=== PATIENT | male | born 2000 | race Caucasian/White ===

== ENCOUNTER 2021-05-31 15:49 | Inpatient (IN) | payer MEDICAID, SELFPAY ==
[2021-05-31 15:57] VITALS: BP 133/71; PULSE 71; RESP 18; TEMP 36.8; O2SAT 96; BMI 35.5
[2021-05-31 16:44] LABS: Basophils # 0.1 10^3/uL (0.0-0.1); Basophils % 1.1 %; Eosinophils # 0.2 10^3/uL (0.0-0.8); Eosinophils % 2.7 %; Hematocrit 46.8 % (42.0-52.0); Hemoglobin 15.7 g/dL (11.7-16.6); Lymphocytes # 2.4 10^3/uL (0.8-4.8); Lymphocytes % 36.7 %; Mean Corpuscular HGB Conc 33.5 g/dL (30.0-36.0); Mean Corpuscular Hemoglobin 28.4 pg (28.0-34.0); Mean Corpuscular Volume 84.8 fL (80-94); Monocytes # 0.6 10^3/uL (0.2-0.9); Neutrophils # 3.34 10^3/uL (1.8-7.7); Neutrophils % 50.3 %; Nucleated Red Blood Cells % 0 %; Platelet Count 235 10^3/cmm (130-400); Red Blood Count 5.52 10^6/uL (4.1-5.3); Red Cell Distribution Width 12.1 % (12.1-15.1); White Blood Count 6.6 10^3/uL (4.0-10.0)
--- NOTE | 2021-05-31 16:44 | W.ED.PSYCH ---
HPI - Psych General: Chief Complaint: Psychiatric Symptoms Stated Complaint: MHE, Depression Time Seen by Provider: 05/31/21 16:25 History of Present Illness: HPI Narrative: 21-year-old male presents emergency room with complaint of suicidal ideation depression for the last 3 weeks. He states he had thoughts of harming self by cutting his wrist but he does not plan to hurt himself and else at this point. He has previously been hospitalized for suicide attempts at other facilities. He is currently on an SSRI. No recent dose of medication changes or dose changes. He presents here with his there is no apparent conflict between the 2 of them while I was in the room. He denies any overt attempt to harm himself to this point just the MD complaint: suicidal ideation and feels depressed Onset (ago): week(s) (3) Duration: intermittent and getting worse History of same: Yes Relieving factors: none Exacerbating factors: none Associated psychiatric symptoms: suicidal ideation Associated symptoms: Deny auditory hallucinations, visual hallucinations, delusions, depression, homicidal ideation, suicidal ideation or racing thoughts Review of Systems Const: Denies: fever(s), chills, body aches, change in appetite, fatigue or malaise ENMT: Denies: throat pain, ear or mastoid pain, nasal discharge or nasal congestion Card: Denies: chest pain, edema, dyspnea on exertion or orthopnea Resp: Denies: dyspnea, productive cough or non-productive cough GI: Denies: abdominal pain, nausea, vomiting, hematemesis, coffee ground emesis, diarrhea, constipation, bloating, hematochezia or melena : Denies: flank pain, dysuria, urinary frequency or urinary urgency Skin/Breast: Denies: rash or pruritus Psych: Denies: depression, visual hallucinations, auditory hallucinations, suicidal ideation or homicidal ideation PFS ED PFSH: Medical History Anxiety Insomnia Severe depression Strain of knee and leg, left Family History Other CAD (coronary artery disease) Diabetes Social History Smoking and tobacco status: current every day smoker cigarettes Packs smoked per day: 1 Second hand smoke exposure: No Alcohol intake: current Alcohol intake frequency: holidays/special occasions only Desire information about alcohol rehabilitation?: No Desire information about substance/drug rehabilitation?: No Current occupational status: unemployed Physical Exam Const: COMMON NORMALS: no acute distress GENERAL APPEARANCE: cooperative and comfortable ORIENTATION/CONSCIOUSNESS: Yes awake, Yes oriented to person, Yes oriented to place and Yes oriented to time HENMT: COMMON NORMALS: normocephalic, atraumatic and hearing grossly normal bilaterally HEAD & SCALP: normocephalic and atraumatic Neck/C-Spine: COMMON NORMALS: no JVD Resp: COMMON NORMALS: normal respiratory effort, No retractions, No use of accessory muscles and clear to auscultation bilaterally AUSCULTATION: clear to auscultation bilaterally Cardio: COMMON NORMALS: no JVD, regular rate, regular rhythm and No murmurs present (Cardio) RATE: regular rate RHYTHM: regular rhythm GI: COMMON NORMALS: Soft to palpation and No hepatosplenomegaly present AUSCULTATION: Yes normoactive bowel sounds PALPATION: Yes Soft to palpation, No Tenderness to palpation present (GI), No Guarding due to palpation present (GI) and Yes No hepatosplenomegaly present Extremity: COMMON NORMALS: normal to inspection, capillary refill normal, no clubbing, cyanosis or edema, no calf tenderness and no pedal edema Neuro: SENSORIUM/ORIENTATION: Yes oriented to person, Yes oriented to place and Yes oriented to time Psych: THOUGHT CONTENT: No delusions Skin: COMMON NORMALS: no rashes or lesions noted GENERAL SKIN EXAM: no rashes or lesions noted Course Vital Signs: Vital signs: Vital Signs Temperature 98.1 F 06/02/21 12:34 Pulse Rate 55 L 06/02/21 12:34 Respiratory Rate 17 06/02/21 12:34 Blood Pressure 155/84 06/02/21 12:34 Pulse Oximetry 96 06/02/21 12:34 MDM - Psych MDM Narrative: Medical decision making narrative: Suicidal ideation discussed Dr. Grijalva he will accept patient admission orders written Lab Data: Labs: Lab Results 05/31/21 05/31/21 Range/Units 16:38 16:38 WBC 6.6 (4.0-10.0) 10^3/ uL RBC 5.52 H (4.1-5.3) 10^6/u L Hgb 15.7 (11.7-16.6) g/dL Hct 46.8 (42.0-52.0) % MCV 84.8 (80-94) fL MCH 28.4 (28.0-34.0) pg MCHC 33.5 (30.0-36.0) g/dL RDW 12.1 (12.1-15.1) % Plt Count 235 (130-400) 10^3/c mm MPV 11.0 H (7.4-10.4) fL Neut % (Auto) 50.3 % Lymph % (Auto) 36.7 % [place] % (Auto) 9.0 % Eos % (Auto) 2.7 % Baso % (Auto) 1.1 % Neut # (Auto) 3.34 (1.8-7.7) 10^3/u L Lymph # (Auto) 2.4 (0.8-4.8) 10^3/u L [place] # (Auto) 0.6 (0.2-0.9) 10^3/u L Eos # (Auto) 0.2 (0.0-0.8) 10^3/u L Baso # (Auto) 0.1 (0.0-0.1) 10^3/u L Nucleated RBC % (a uto) 0 % Nucleated RBCs # 0.0 /100WBC Sodium 139 (136-145) mmol/L Potassium 4.1 (3.5-5.1) mmol/L Chloride 103 (98-107) mmol/L Carbon Dioxide 26 (22-29) mmol/L Anion Gap 14.1 (5-19) BUN 9 (6-20) mg/dL Creatinine 0.7 (0.7-1.2) mg/dL GFR Calculation 141.0 H (90-130) mL/min Glucose 91 (65-115) mg/dL Calculated Osmolal ity 286 (285-295) mOsm/k g Calcium 9.0 (8.5-10.5) mg/dL Total Bilirubin 0.7 (0.15-1.2) mg/dL AST 58 H (0-40) U/L ALT 96 H (0-41) U/L Alkaline Phosphata se 55 (40-130) IU/L Total Protein 7.2 (6.6-8.7) g/dL Albumin 4.4 (3.5-5.2) g/dL Globulin 2.8 (1.3-4.6) g/dL Salicylates < 0.3 L (3-10) mg/dL Acetaminophen < 5.0 L (10-30) ug/mL Discharge Plan Discharge Admit Provider: Bijan Grijalva Condition: Stable Discharge Orders: Discharge Order (Routine); Ordered 06/02/21 Ordered By: Bijan Grijalva Discharge Diet: Regular Discharge Activity: Resume usual activity Coding Level of Care Code ED Entry Level Buyer for Chg Fwd Exam Comprehensive
[2021-05-31 17:18] LABS: Alanine Aminotransferase 96 U/L (0-41); Albumin Level 4.4 g/dL (3.5-5.2); Alkaline Phosphatase 55 IU/L (40-130); Anion Gap 14.1 (5-19); Aspartate Amino Transferase 58 U/L (0-40); Blood Urea Nitrogen 9 mg/dL (6-20); Carbon Dioxide 26 mmol/L (22-29); Chloride 103 mmol/L (98-107); Globulin 2.8 g/dL (1.3-4.6); Glucose 91 mg/dL (65-115); Osmolality Calculated 286 mOsm/kg (285-295); Potassium 4.1 mmol/L (3.5-5.1); Sodium 139 mmol/L (136-145); Total Bilirubin 0.7 mg/dL (0.15-1.2); Total Protein 7.2 g/dL (6.6-8.7)
[2021-05-31 17:29] LABS: Acetaminophen < 5.0 ug/mL (10-30); Salicylate < 0.3 mg/dL (3-10)
[2021-05-31 17:33] LABS: Add Urine Microscopic? YES; Bilirubin Urine Neg (Negative); Blood Urine Neg (Negative); Glucose Urine UA Norm (Normal); Ketones Urine Negative (Negative); Leukocyte Esterase Urine 2+ (Negative); Nitrate Urine Negative (Negative); Protein Urine Neg (Negative); Specific Gravity, Urine 1.015 (1.005-1.030); Urine Appearance SL Hazy (CLEAR); Urine Color Yellow (Yellow); Urobilinogen Urine Norm (Negative); pH Urine 5 (5-7)
[2021-05-31 17:34] LABS: Add Urine Culture? Yes; Bacteria Urine 1+ /hpf; WBC Urine 55-80 /hpf (0-5)
[2021-05-31 17:52] VITALS: BP 147/105; PULSE 59; RESP 17; TEMP 37.1; O2SAT 97
[2021-05-31 18:11] LABS: Amphetamines Screen Urine Negative (Negative); Barbiturates Screen Urine Negative (Negative); Benzodiazepines Screen Urine Negative (Negative); Cocaine Screen Urine Negative (Negative); Opiate Screen Urine Negative (Negative); PCP Screen Urine Negative (Negative); THC Screen Urine Negative (Negative)
[2021-05-31 18:51] LABS: Alcohol Level < 10 mg/dL (0-10)
[2021-05-31 21:00] VITALS: BP 119/67; PULSE 70; RESP 18; TEMP 36.9; O2SAT 96
[2021-06-01 14:00] VITALS: BP 112/63; PULSE 63; RESP 16; TEMP 36.3; O2SAT 97
--- NOTE | 2021-06-01 15:13 | PC.RESP ---
SMOKING CESSATION INFORMATION SENT TO PATIENT.
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
[2021-06-01 20:20] VITALS: BP 110/71; PULSE 71; RESP 18; TEMP 36.9; O2SAT 96
[2021-06-01] MEDS: sertraline 50 mg Tablet PO (20:59)
[2021-06-02 06:00] VITALS: BP 155/84; PULSE 55; RESP 17; TEMP 36.7; O2SAT 96
[2021-06-02] MEDS: sertraline 50 mg Tablet PO (07:54)
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
[2021-06-02 12:34] VITALS: BP 155/84; PULSE 55; RESP 17; TEMP 36.7; O2SAT 96
== END 2021-06-02 13:10 | disposition home or self-care (01) | DRG 885 ==
LOC: ER 16:25 → NP 17:36
PROVIDERS: Admitting Provider Psychiatry & Neurology Psychiatry; Emergency Provider Family Medicine; PCP Family Medicine; Visit Provider Psychiatry & Neurology Psychiatry
DX: F33.2 Major depressive disorder, recurrent severe without psychotic features (principal); R45.851 Suicidal ideations; F43.12 Post-traumatic stress disorder, chronic; F41.9 Anxiety disorder, unspecified; G47.00 Insomnia, unspecified; F17.210 Nicotine dependence, cigarettes, uncomplicated; Z91.5 Personal history of self-harm; Z62.811 Personal history of psychological abuse in childhood; Z81.3 Family history of other psychoactive substance abuse and dependence; Z63.8 Other specified problems related to primary support group; Z62.820 Parent-biological child conflict
CPT/HCPCS: 80053; 80306; 80307; 81001; 85025; 87086; 99285

== ENCOUNTER → 2021-06-11 10:15 | Outpatient (BNVA) | payer MEDICAID, SELFPAY | PROVIDERS: PCP Family Medicine; Visit Provider Family Medicine | DX: R82.71 Bacteriuria (principal); R82.81 Pyuria; R79.89 Other specified abnormal findings of blood chemistry; F17.200 Nicotine dependence, unspecified, uncomplicated; F17.213 Nicotine dependence, cigarettes, with withdrawal; F43.10 Post-traumatic stress disorder, unspecified; F41.9 Anxiety disorder, unspecified; F32.9 Major depressive disorder, single episode, unspecified | CPT/HCPCS: 80053; 81000; 87086 ==

== ENCOUNTER → 2021-09-21 09:35 | Outpatient (BNVA) | payer OTHER, SELFPAY | PROVIDERS: Visit Provider Psychiatry & Neurology Psychiatry | DX: F41.1 Generalized anxiety disorder (principal); F33.2 Major depressive disorder, recurrent severe without psychotic features; F17.218 Nicotine dependence, cigarettes, with other nicotine-induced disorders | CPT/HCPCS: 99214 ==

== ENCOUNTER → 2021-11-14 08:11 | Outpatient (BNVA) | payer OTHER, SELFPAY | PROVIDERS: Visit Provider Psychiatry & Neurology Psychiatry | DX: F41.1 Generalized anxiety disorder (principal); F33.2 Major depressive disorder, recurrent severe without psychotic features; F17.218 Nicotine dependence, cigarettes, with other nicotine-induced disorders | CPT/HCPCS: 99214 ==

== ENCOUNTER → 2021-11-19 13:42 | Outpatient (BNVA) | payer OTHER, SELFPAY | PROVIDERS: Visit Provider Counselor Mental Health | DX: F41.1 Generalized anxiety disorder (principal); F33.2 Major depressive disorder, recurrent severe without psychotic features; F43.10 Post-traumatic stress disorder, unspecified; F41.9 Anxiety disorder, unspecified; F32.9 Major depressive disorder, single episode, unspecified | CPT/HCPCS: 90837; 90834 ==

== ENCOUNTER → 2021-11-28 11:46 | Outpatient (BNVA) | payer OTHER, SELFPAY | PROVIDERS: PCP Family Medicine; Visit Provider Counselor Mental Health | DX: F41.1 Generalized anxiety disorder (principal); F33.2 Major depressive disorder, recurrent severe without psychotic features; F43.10 Post-traumatic stress disorder, unspecified; F41.9 Anxiety disorder, unspecified; F32.9 Major depressive disorder, single episode, unspecified | CPT/HCPCS: 90837; 90834 ==

== ENCOUNTER → 2021-12-10 12:57 | Outpatient (BNVA) | payer OTHER, SELFPAY | PROVIDERS: PCP Family Medicine; Visit Provider Counselor Mental Health | DX: F41.1 Generalized anxiety disorder (principal); F33.2 Major depressive disorder, recurrent severe without psychotic features | CPT/HCPCS: 90834 ==

== ENCOUNTER → 2021-12-24 12:57 | Outpatient (BNVA) | payer OTHER, SELFPAY | PROVIDERS: PCP Family Medicine; Visit Provider Counselor Mental Health | DX: F41.1 Generalized anxiety disorder (principal); F33.2 Major depressive disorder, recurrent severe without psychotic features; F41.9 Anxiety disorder, unspecified; F32.9 Major depressive disorder, single episode, unspecified | CPT/HCPCS: 90834 ==

== ENCOUNTER → 2021-12-26 14:07 | Outpatient (BNVA) | payer MEDICAID, SELFPAY | PROVIDERS: PCP Family Medicine; Referring Provider Family Medicine; Visit Provider Orthopaedic Surgery | DX: M25.562 Pain in left knee (principal) | CPT/HCPCS: 73560; 73565 ==

== ENCOUNTER → 2022-01-04 09:53 | Outpatient (BNVA) | payer OTHER, MEDICAID, SELFPAY | PROVIDERS: PCP Family Medicine; Visit Provider Counselor Mental Health | DX: F41.1 Generalized anxiety disorder (principal); F33.2 Major depressive disorder, recurrent severe without psychotic features; F43.10 Post-traumatic stress disorder, unspecified | CPT/HCPCS: 90837; 90834 ==

== ENCOUNTER → 2022-01-14 11:55 | Outpatient (BNVA) | payer MEDICAID, SELFPAY | PROVIDERS: PCP Family Medicine; Visit Provider Counselor Mental Health | DX: F41.9 Anxiety disorder, unspecified (principal); F32.9 Major depressive disorder, single episode, unspecified; F43.10 Post-traumatic stress disorder, unspecified; F33.2 Major depressive disorder, recurrent severe without psychotic features; F41.1 Generalized anxiety disorder | CPT/HCPCS: 90834 ==

== ENCOUNTER → 2022-01-21 12:00 | Outpatient (BNVA) | payer OTHER, SELFPAY | PROVIDERS: PCP Family Medicine; Visit Provider Counselor Mental Health | DX: F41.1 Generalized anxiety disorder (principal); F33.2 Major depressive disorder, recurrent severe without psychotic features | CPT/HCPCS: 90834 ==

== ENCOUNTER → 2022-02-01 11:47 | Outpatient (BNVA) | payer OTHER, SELFPAY | PROVIDERS: PCP Family Medicine; Visit Provider Counselor Mental Health | DX: F41.1 Generalized anxiety disorder (principal); F33.2 Major depressive disorder, recurrent severe without psychotic features; F43.10 Post-traumatic stress disorder, unspecified; F41.9 Anxiety disorder, unspecified; F32.9 Major depressive disorder, single episode, unspecified | CPT/HCPCS: 90834 ==

== ENCOUNTER → 2022-02-04 10:15 | Outpatient (BNVA) | payer OTHER, SELFPAY | PROVIDERS: PCP Family Medicine; Visit Provider Psychiatry & Neurology Psychiatry | DX: F43.10 Post-traumatic stress disorder, unspecified (principal); F41.1 Generalized anxiety disorder; F33.2 Major depressive disorder, recurrent severe without psychotic features; F17.218 Nicotine dependence, cigarettes, with other nicotine-induced disorders | CPT/HCPCS: 99214 ==

== ENCOUNTER 2022-02-08 08:19 | Outpatient (CLI) | payer MEDICAID, SELFPAY ==
--- NOTE | 2022-02-08 08:26 | MR_ITS ---
WS: [id number] MRI LEFT KNEE HISTORY: M25.569 - Pain in unspecified knee COMPARISON: 08/16/2016 MRI. Prior knee radiograph 12/26/2021 Anterior cruciate ligament: Intact. Posterior cruciate ligament: Intact. Medial collateral ligament: Intact. Posterior lateral corner structures: Intact. Medial menisci: Intact. Normal signal, size and shape. Lateral meniscus: Intact. Normal signal, size and shape. Extensor mechanism: Distal quadriceps tendon and patellar tendons are intact. Fluid and soft tissue: No joint effusion. No Keenan's cyst. Osseous and articular structures: Patellofemoral compartment: Normal. Medial compartment: Normal. Normal joint space and normal cartilage. Lateral compartment: Normal joint space and cartilage. MR/MR knee LT wo con* [id number] IMPRESSION: Unremarkable MRI LEFT knee. No meniscal tear or marrow edema. No fractures.
== END 2022-02-08 08:20 | disposition home or self-care (01) ==
LOC: RAD 08:20
PROVIDERS: PCP Family Medicine; Visit Provider Orthopaedic Surgery
DX: M25.562 Pain in left knee (principal); F41.1 Generalized anxiety disorder; F43.12 Post-traumatic stress disorder, chronic
CPT/HCPCS: 90834; 73721

== ENCOUNTER 2022-08-23 18:18 | Emergency (ER) | payer MEDICAID, SELFPAY ==
[2022-08-23 18:29] VITALS: BP 155/77; PULSE 81; RESP 15; TEMP 36.7; O2SAT 96; BMI 35.2
--- NOTE | 2022-08-23 18:37 | XRR_ITS ---
PROCEDURE INFORMATION: Exam: XR Left Ribs with PA Chest Exam date and time: 08/23/2022 6:40 PM Age: 22 years old Clinical indication: Painful respiration; Additional info: Left rib pain TECHNIQUE: Imaging protocol: Radiologic exam of the Left ribs with PA chest. Views: 3 views COMPARISON: CR XR chest 1V [id number] 09/02/2016 2:44 PM FINDINGS: Lungs: There is no pulmonary vascular congestion. There is no evidence of focal alveolar consolidation. Pleural spaces: There are no pleural effusions. There is no evidence of pneumothorax. Heart/Mediastinum: The cardiac silhouette is within normal limits. Bones/joints: No displaced rib fracture is seen. No acute lucent fracture lines are visualized. XR/XR ribs LT mn 3V w [id number] IMPRESSION: 1. No acute rib fracture is seen radiographically. 2. No acute cardiopulmonary disease identified.
--- NOTE | 2022-08-23 18:37 | W.ED.GENADLT ---
HPI - General Adult General: Chief complaint: General Medical Stated complaint: left upper side pain Time Seen by Provider: 08/23/22 18:37 History of Present Illness: Patient is a 22-year-old male comes to the ED with left rib pain. Patient states that he injured it approximately 5 days ago. 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 He twisted to put TV on shelf and felt sharp pain in the left rib. Patient says he has a history of fractured left rib from several years ago. He now has pain in his left lower ribs when he takes a deep breath in and they are tender to the touch. He rates his pain currently a 5 out of 10. Associated symptoms: Deny chest pain, dyspnea, headache(s), nausea, rash, palpitations or vomiting Review of Systems Const: Denies: fever(s), chills or fatigue Eyes: Denies: change in vision or eye discomfort ENMT: Denies: throat pain, odynophagia, nasal discharge or nasal congestion Card: Denies: chest pain, palpitations, edema, swelling of feet/ankles, dyspnea on exertion or orthopnea Resp: Denies: dyspnea, productive cough or non-productive cough GI: Denies: abdominal pain, nausea, vomiting, diarrhea, constipation or hematochezia : Denies: flank pain, difficulty urinating, dysuria or hematuria Musc: Reports: other (Left rib pain); Denies: neck pain, back pain or extremity swelling Skin/Breast: Denies: rash or new lesions Neuro: Denies: headache(s), numbness in extremities or weakness in extremities PFS ED PFSH: Medical History Anxiety Insomnia Psychiatric care Severe depression Strain of knee and leg, left Family History Other CAD (coronary artery disease) Diabetes Hypertension Social History Smoking and tobacco status: current every day smoker cigarettes Packs smoked per day: 0.5 Years cigarettes smoked: 4 Quit status (tobacco): considering quitting Second hand smoke exposure: Yes Smoking risk assessment/counseling performed?: No Alcohol intake: current Alcohol intake frequency: holidays/special occasions only Alcohol type: beer and hard liquor Desire information about alcohol rehabilitation?: No Counseling given: No Desire information about substance/drug rehabilitation?: No Counseling given: No Current occupational status: unemployed Physical Exam Const: COMMON NORMALS: no acute distress, patient oriented x3, healthy appearing and alert GENERAL APPEARANCE: cooperative and comfortable HENMT: COMMON NORMALS: normocephalic HEAD & SCALP: normocephalic MOUTH: Normal oral and palatal mucosa present THROAT: posterior oropharynx normal and uvula midline Neck/C-Spine: COMMON NORMALS: supple GENERAL: Yes normal visual inspection Chest: CHEST: Yes tenderness rib left mid-axillary line involving the 9th rib and involving the 10th rib Resp: COMMON NORMALS: normal respiratory effort, No retractions, No use of accessory muscles and clear to auscultation bilaterally AUSCULTATION: clear to auscultation bilaterally Cardio: COMMON NORMALS: regular rate, regular rhythm, S1 normal heart sound present, S2 normal heart sound present, No gallops present (Cardio), No clicks present (Cardio), No murmurs present (Cardio) and Peripheral pulses 2+ throughout RATE: regular rate RHYTHM: regular rhythm HEART SOUNDS: S1 normal heart sound present and S2 normal heart sound present PERIPHERAL PULSES: Peripheral pulses 2+ throughout GI: COMMON NORMALS: Normal to inspection, nondistended, normoactive bowel sounds present, Soft to palpation, non-tender and no masses PALPATION: Yes Soft to palpation : COMMON NORMALS: Yes no CVA tenderness BLADDER/KIDNEY EXAM: Yes no CVA tenderness Back/Pelvis: COMMON NORMALS: no CVA tenderness Extremity: COMMON NORMALS: normal to inspection Neuro: COMMON NORMALS: patient oriented x3 SENSORIUM/ORIENTATION: Yes alert GAIT: Yes Normal gait present Skin: GENERAL SKIN EXAM: dry skin Course Vital Signs: Vital signs: Vital Signs Temperature 98.1 F 08/23/22 18:29 Pulse Rate 81 08/23/22 18:29 Respiratory Rate 15 08/23/22 18:29 Blood Pressure 155/77 08/23/22 18:29 Pulse Oximetry 96 08/23/22 18:29 Oxygen Delivery Me thod 08/23/22 18:29 [facility] - General Adult Medical Decision Making Patient is a 22-year-old male comes to the ED with left rib pain. Patient states that he injured it approximately 5 days ago. 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 He twisted to put TV on shelf and felt sharp pain in the left rib. Vitals are stable. Patient appears nontoxic in no acute distress or pain. He has some palpable mid left axillary tenderness along the ninth and 10th rib. The rest of his exam is benign. Rib/chest x-ray showed no acute fractures or findings. He was given a dose of Toradol here in the ED and was stable for discharge home. Diagnosed with left rib pain likely from muscle strain. He was sent home with a prescription for Celebrex and a muscle relaxer. Told to follow-up with PCP within the next week for reevaluation. Patient understood and agreed with plan. Lab Data Radiology Impressions Ribs X-Ray 08/23/22 18:37 IMPRESSION: 1. No acute rib fracture is seen radiographically. 2. No acute cardiopulmonary disease identified. Discharge Plan Discharge Patient Disposition: Home Clinical Impression: Rib pain on left side Condition: Stable Prescriptions: New ibuprofen 600 mg tablet 600 mg PO Q8H PRN (Reason: pain) Qty: 30 0RF cyclobenzaprine 10 mg tablet 10 mg PO BID PRN (Reason: muscle spasm and pain) Qty: 15 0RF No Action acetaminophen [Tylenol] 325 mg capsule 975 mg PO QID PRN (Reason: fever or pain) trazodone 50 mg tablet 100 mg PO .HS PRN (Reason: insomnia) Qty: 180 0RF sertraline 100 mg tablet 150 mg PO DAILY 90 Days Qty: 135 0RF prazosin 5 mg capsule 5 mg PO .HS Qty: 90 0RF hydroxyzine HCl 50 mg tablet 50 mg PO QID PRN (Reason: anxiety) Qty: 120 2RF ibuprofen 200 mg Tablet 200 - 400 mg PO Q6H PRN (Reason: HEADACHE/PAIN/FEVER) Discharge Orders: Discharge ED (Routine); Ordered 08/23/22 Ordered By: Everton Rucker Referrals: Godwin Chacon MD [Primary Care Provider] - Discharge Diet: Regular Discharge Activity: Increase activity as tolerated Activity Restrictions/Additional Instructions: Follow-up with medical provider as directed in the next 7 to 10 days. Take medications as prescribed. Apply cold pack on sore area for 15 minutes at a time multiple times throughout the day to help with symptoms. Return to the ER or your medical provider if condition worsens. Please read and understand discharge instructions. Thank you for choosing [facility] for your healthcare needs today. Please realize this is an emergency room and that we are providing you with a medical screening exam and this may not be complete and all inclusive of all the testing and or work up that you may need to determine your ailment or severity of your illness. It is very important that you follow up as instructed or that you return to the Emergency Department should you have concerns or if your condition changes or worsens in any way. Coding Level of Care Code ED Jai Alai Player for Maria R Garcia Exam Comprehensive
[2022-08-23] MEDS: ketorolac 60 mg/2 mL INJ IM (18:56)
== END 2022-08-23 19:16 | disposition home or self-care (01) ==
PROVIDERS: Emergency Provider Physician Assistant; PCP Family Medicine
DX: R07.81 Pleurodynia (principal); F17.210 Nicotine dependence, cigarettes, uncomplicated
CPT/HCPCS: 71101; 96372; 99284; J1885

== ENCOUNTER 2022-08-27 16:03 | Emergency (ER) | payer MEDICAID, SELFPAY ==
[2022-08-27 16:10] VITALS: BP 137/74; PULSE 70; RESP 18; TEMP 36.7; O2SAT 96; BMI 35.2
--- NOTE | 2022-08-27 17:29 | ED_ITS ---
HPI - Extremity Problem General: Chief complaint: Extremity Injury, Upper Stated complaint: dizzy, abd pain Time Seen by Provider: 08/27/22 17:26 History of Present Illness: 22-year-old male patient comes in today with left anterior chest wall pain. Patient denies any radiating chest discomfort. Patient denies any shortness of breath. Patient reports pain is exacerbated with movement. Patient was seen 4 days ago for the same complaint and was evaluated at that time for concerns of possible rib fracture. No sign of fracture was noted on the x-rays. On exam patient has tenderness in the left anterior ribs. No crepitus or flailing of the chest is noted. Associated symptoms: Reports chest pain (Left anterior chest wall tenderness); Deny fever(s) or rash Review of Systems Const: Denies: fever(s) Card: Reports: chest pain (Left anterior chest wall tenderness) Resp: Denies: dyspnea Musc: Denies: neck pain Skin/Breast: Denies: rash PFSH ED PFSH: Medical History Anxiety Insomnia Psychiatric care Severe depression Strain of knee and leg, left Family History Other CAD (coronary artery disease) Diabetes Hypertension Social History Smoking and tobacco status: current every day smoker cigarettes Packs smoked per day: 0.5 Years cigarettes smoked: 4 Quit status (tobacco): considering quitting Second hand smoke exposure: Yes Smoking risk assessment/counseling performed?: No Alcohol intake: current Alcohol intake frequency: holidays/special occasions only Alcohol type: beer and hard liquor Desire information about alcohol rehabilitation?: No Counseling given: No Desire information about substance/drug rehabilitation?: No Counseling given: No Current occupational status: unemployed Physical Exam Const: COMMON NORMALS: alert HENMT: COMMON NORMALS: normocephalic HEAD & SCALP: normocephalic Neck/C-Spine: COMMON NORMALS: full ROM Chest: CHEST: Yes tenderness (Palpable tenderness to left anterior ribs, no crepitus or flailing) Resp: COMMON NORMALS: normal respiratory effort and clear to auscultation bilaterally AUSCULTATION: clear to auscultation bilaterally Cardio: COMMON NORMALS: regular rate and regular rhythm RATE: regular rate RHYTHM: regular rhythm GI: COMMON NORMALS: Soft to palpation and non-tender PALPATION: Yes Soft to palpation : COMMON NORMALS: Yes no CVA tenderness BLADDER/KIDNEY EXAM: Yes no CVA tenderness Back/Pelvis: COMMON NORMALS: no CVA tenderness Extremity: COMMON NORMALS: normal to inspection Neuro: SENSORIUM/ORIENTATION: Yes alert Skin: COMMON NORMALS: turgor normal GENERAL SKIN EXAM: turgor normal Course Vital Signs: Vital signs: Vital Signs Temperature 98.1 F 08/27/22 16:10 Pulse Rate 70 08/27/22 16:10 Respiratory Rate 18 08/27/22 16:10 Blood Pressure 137/74 08/27/22 16:10 Pulse Oximetry 96 08/27/22 16:10 Oxygen Delivery Me thod 08/27/22 16:10 MDM - Extremity (Nontraumatic) Medical Decision Making 22-year-old male patient comes in today for complaints of left anterior chest wall pain on exam patient appears in mild to moderate pain. Respirations are even lungs are clear to auscultation. Patient has palpable chest tenderness to the left anterior chest wall. No crepitus or flailing of the chest is noted. Differential diagnosis includes but not limited to pneumonia, rib fracture, costochondritis, contusion. No sign of contusion was noted. X-rays noted no fracture or pneumonia. Believe the patient probably has costochondritis. Patient was given 10 mg of dexamethasone IM, and 30 mg of Toradol IM. Patient was also given 1 hydrocodone tablet in the ER. Patient refused a prescription for hydrocodone due to family history of substance abuse disorder. Recommended holding the ibuprofen and cyclobenzaprine using diclofenac and acetaminophen. Patient stated understanding and agreed to plan. Discharge Plan Discharge Patient Disposition: Home Clinical Impression: Costochondritis Condition: Stable Prescriptions: New diclofenac sodium 75 mg tablet,delayed release (DR/EC) 75 mg PO BID Qty: 20 0RF hydrocodone-acetaminophen 5-325 mg tablet 1 tab PO Q8H PRN (Reason: pain (scale score 7-10)) Qty: 7 0RF Held ibuprofen 200 mg Tablet 200 - 400 mg PO Q6H PRN (Reason: HEADACHE/PAIN/FEVER) Hold Instructions: Resume on 09/06/22. ibuprofen 600 mg tablet 600 mg PO Q8H PRN (Reason: pain) Qty: 30 0RF Hold Instructions: Resume on 09/06/22. Discontinued cyclobenzaprine 10 mg tablet 10 mg PO BID PRN (Reason: muscle spasm and pain) Qty: 15 0RF No Action acetaminophen [Tylenol] 325 mg capsule 975 mg PO QID PRN (Reason: fever or pain) trazodone 50 mg tablet 100 mg PO .HS PRN (Reason: insomnia) Qty: 180 0RF sertraline 100 mg tablet 150 mg PO DAILY 90 Days Qty: 135 0RF prazosin 5 mg capsule 5 mg PO .HS Qty: 90 0RF hydroxyzine HCl 50 mg tablet 50 mg PO QID PRN (Reason: anxiety) Qty: 120 2RF Discharge Orders: Discharge ED (Routine); Ordered 08/27/22 Ordered By: Mor Alexis Referrals: Godwin Chacon MD [Primary Care Provider] - Discharge Diet: Usual diet Discharge Activity: Increase activity as tolerated Patient Instructions: Costochondritis (ED), Opioid Safety Activity Restrictions/Additional Instructions: Activity as tolerated. Gentle stretching and range of motion exercises. Stop cyclobenzaprine. Take diclofenac 75 mg 1 tablet 2 times a day for the next 10 days. Do not use naproxen or ibuprofen while taking diclofenac. Use acetaminophen to help control pain. Use hydrocodone for severe pain. Do not use hydrocodone while driving or operating equipment they may harm yourself or others. Most often this inflammatory process will take 2 to 3 weeks to recover completely. Follow-up with primary care in 3 days for recheck. Return to ER for fever greater than 100.4, increased shortness of breath, or new concerns. 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
--- NOTE | 2022-08-27 17:30 | XRR_ITS ---
PROCEDURE INFORMATION: Exam: XR Chest Exam date and time: 08/27/2022 5:37 PM Age: 22 years old Clinical indication: Chest wall pain; Additional info: Left chest wall pain TECHNIQUE: Imaging protocol: Radiologic exam of the chest. Views: 2 views. COMPARISON: CR (CHEST, ) 08/23/2022 6:40 PM FINDINGS: Lungs: Unremarkable. No consolidation. Pleural spaces: Unremarkable. No pleural effusion. No pneumothorax. Heart/Mediastinum: Unremarkable. No cardiomegaly. Bones/joints: Unremarkable. XR/XR chest 2V* [id number] IMPRESSION: No acute findings.
[2022-08-27] MEDS: dexamethasone 10 mg/mL INJ IM (18:09)
[2022-08-27] MEDS: HYDROcodone-acetaminophen 5-325 mg Tablet 1 TAB PO (18:10)
[2022-08-27] MEDS: ketorolac 30 mg/mL INJ IM (18:10)
== END 2022-08-27 18:11 | disposition home or self-care (01) ==
PROVIDERS: Emergency Provider Nurse Practitioner Family; PCP Family Medicine
DX: M94.0 Chondrocostal junction syndrome [Tietze] (principal); F17.210 Nicotine dependence, cigarettes, uncomplicated
CPT/HCPCS: 71046; 96372; 99284; J1100; J1885

== ENCOUNTER 2022-11-14 13:52 | Outpatient (CLI) | payer MEDICAID, SELFPAY ==
[2022-11-14 14:59] LABS: Sperm Progressive Motility 70 % (31-34); Volume Semen 2.5 mL (2-5)
[2022-11-14 15:00] LABS: Sperm Immotility 25 % (50-60); Sperm Non-Progressive Motility 5 % (5-10)
[2022-11-14 15:54] LABS: Side 1 75; Side 2 66
[2022-11-14 15:56] LABS: Viscosity Semen High Viscosity
[2022-11-14 15:57] LABS: Epithelial Count Semen 0-4 /hpf; Pathology Referral Yes
== END 2022-11-14 13:53 | disposition home or self-care (01) ==
LOC: LAB 13:58
PROVIDERS: PCP Family Medicine; Visit Provider Nurse Practitioner Women's Health
DX: Z31.69 Encounter for other general counseling and advice on procreation (principal)
CPT/HCPCS: 80503; 89320

== ENCOUNTER 2023-04-20 18:34 | Emergency (ER) | payer MEDICAID, SELFPAY ==
--- NOTE | 2023-04-20 18:38 | XRR_ITS ---
PROCEDURE INFORMATION: Exam: XR Chest Exam date and time: 04/20/2023 6:55 PM Age: 23 years old Clinical indication: Pain; Chest pressure; Additional info: Cp TECHNIQUE: Imaging protocol: Radiologic exam of the chest. Views: 1 view. COMPARISON: CR (CHEST, ) 08/27/2022 5:37 PM FINDINGS: Lungs: Unremarkable. No consolidation. Pleural spaces: Unremarkable. No pleural effusion. No pneumothorax. Heart/Mediastinum: Unremarkable. No cardiomegaly. Bones/joints: Unremarkable. XR/XR chest 1V portable [id number] IMPRESSION: No acute findings.
[2023-04-20 18:49] VITALS: BP 124/69; PULSE 74; RESP 16; TEMP 36.7; O2SAT 96; BMI 36.6
[2023-04-20 19:22] LABS: Basophils # 0.1 10^3/uL (0.0-0.1); Basophils % 0.9 %; Eosinophils # 0.2 10^3/uL (0.0-0.8); Hematocrit 44.2 % (42.0-52.0); Hemoglobin 15.1 g/dL (11.7-16.6); Lymphocytes # 3.1 10^3/uL (0.8-4.8); Lymphocytes % 37.9 %; Mean Corpuscular HGB Conc 34.2 g/dL (30.0-36.0); Mean Corpuscular Hemoglobin 28.5 pg (28.0-34.0); Mean Corpuscular Volume 83.6 fl (80-94); Mean Platelet Volume 10.3 fL (7.4-10.4); Monocytes # 0.5 10^3/uL (0.2-0.9); Monocytes % 6.7 %; Neutrophils % 52.1 %; Nucleated Red Blood Cells % 0 %; Platelet Count 220 10^3/cmm (130-400); Red Blood Count 5.29 10^6/uL (4.1-5.3); Red Cell Distribution Width 12.5 % (12.1-15.1); White Blood Count 8.1 10^3/uL (4.0-10.0)
[2023-04-20 19:36] LABS: Alanine Aminotransferase 96 U/L (0-41); Albumin Level 4.6 g/dL (3.5-5.2); Alkaline Phosphatase 40 U/L (40-130); Anion Gap 13.2 (5-19); Aspartate Amino Transferase 58 U/L (0-40); Blood Urea Nitrogen 15 mg/dL (6-20); Calcium 8.9 mg/dL (8.5-10.5); Carbon Dioxide 26 mmol/L (22-29); Chloride 104 mmol/L (98-107); Globulin 2.5 g/dL (1.3-4.6); Glomerular Filtration Rate 103.7 mL/min (90-130); Glucose 86 mg/dL (65-115); Lipase 18 U/L (13-60); Osmolality Calculated 288 mOsm/kg (285-295); Potassium 4.2 mmol/L (3.5-5.1); Sodium 139 mmol/L (136-145); Total Bilirubin 0.5 mg/dL (0.15-1.2); Total Protein 7.1 g/dL (6.6-8.7)
--- NOTE | 2023-04-20 20:00 | ECG_ITS ---
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 Measurements Intervals [place] Rate: 55 P: 50 ME: 193 QRS: 44 QRSD: 113 T: 52 QT: 420 QTc: 404 Interpretive Statements SINUS BRADYCARDIA WITH SINUS ARRHYTHMIA MODERATE INTRAVENTRICULAR CONDUCTION DELAY [110+ ms QRS DURATION] Compared to ECG 09/02/2016 14:26:45 Intraventricular conduction delay now present Sinus rhythm no longer present Electronically Signed On 04-21-2023 11:08:30 CDT by Love Kim M.D. [email or web address]
--- NOTE | 2023-04-20 20:00 | W.ED.CHESTPA ---
HPI - Chest Pain General: Chief Complaint: Chest Pain Stated Complaint: Chest pain, vomiting Time Seen by Provider: 04/20/23 19:32 Source: patient Mode of arrival: ambulatory Limitations: no limitations History of Present Illness: 23-year-old male states that he has had chest pain over the last 3 to 4 days states he also has had some nausea and vomiting. States pain is a sharp pain in the center of his chest. He denies any shortness of breath denies any fevers she denies any worsening improving factors. Associated symptoms: Reports nausea and vomiting; Deny abdominal pain, dyspnea or fever(s) Review of Systems Const: Denies: fever(s) or chills Eyes: Denies: eye discomfort ENMT: Denies: throat pain or dental pain Card: Reports: chest pain Resp: Denies: dyspnea GI: Reports: nausea and vomiting; Denies: abdominal pain or diarrhea Musc: Denies: neck pain or back pain Skin/Breast: Denies: rash Neuro: Denies: headache(s) PFSH ED PFSH: Medical History Anxiety Insomnia Psychiatric care Severe depression Strain of knee and leg, left Family History Other CAD (coronary artery disease) Diabetes Hypertension Social History Smoking and tobacco status: current every day smoker cigarettes Packs smoked per day: 0.5 Years cigarettes smoked: 4 Quit status (tobacco): considering quitting Second hand smoke exposure: Yes Smoking risk assessment/counseling performed?: No Alcohol intake: current Alcohol intake frequency: holidays/special occasions only Alcohol type: beer and hard liquor Desire information about alcohol rehabilitation?: No Counseling given: No Substance/Drug Use: former Date of last use: Marijuana - 2019 Desire information about substance/drug rehabilitation?: No Counseling given: No Current occupational status: unemployed Physical Exam Const: COMMON NORMALS: no acute distress, patient oriented x3 and healthy appearing HENMT: COMMON NORMALS: normocephalic and atraumatic HEAD & SCALP: normocephalic and atraumatic Eye: COMMON NORMALS: conjunctivae normal CONJUNCTIVA: Yes conjunctivae normal Neck/C-Spine: COMMON NORMALS: full ROM and supple Chest: COMMONS NORMALS: normal inspection of the chest and normal palpation of entire chest wall Resp: COMMON NORMALS: normal respiratory effort, No retractions, No use of accessory muscles and clear to auscultation bilaterally AUSCULTATION: clear to auscultation bilaterally Cardio: COMMON NORMALS: regular rate, regular rhythm and No murmurs present (Cardio) RATE: regular rate RHYTHM: regular rhythm GI: COMMON NORMALS: Normal to inspection, nondistended, normoactive bowel sounds present, Soft to palpation, non-tender and no masses PALPATION: Yes Soft to palpation Extremity: COMMON NORMALS: normal to inspection and full ROM Neuro: COMMON NORMALS: patient oriented x3, moves all extremities and no focal motor deficits Psych: COMMON NORMALS: mental status grossly normal, Normal thought process present and cooperative THOUGHT PROCESS: Normal thought process present Skin: COMMON NORMALS: no rashes or lesions noted and no wounds GENERAL SKIN EXAM: no rashes or lesions noted Course Vital Signs: Vital signs: Vital Signs Temperature 98.0 F 04/20/23 18:49 Pulse Rate 74 04/20/23 18:49 Respiratory Rate 16 04/20/23 18:49 Blood Pressure 124/69 04/20/23 18:49 Pulse Oximetry 96 04/20/23 18:49 Oxygen Delivery Me thod Room Air 04/20/23 18:49 MDM - Chest Pain Medical Decision Making Patient presents here with chest pains atypical in nature blood work here is normal troponin EKG x-ray are normal. Blood work here is normal he is stable for discharge patient is follow-up PCP and return if worsening. Medical Records I reviewed the patient's medical records. Lab Data I reviewed the patient's lab results. 04/20/23 19:08 04/20/23 19:08 Radiology Impressions Chest X-Ray 04/20/23 18:38 IMPRESSION: No acute findings. Laboratory Results WBC 8.1 10^3/uL (4.0-10.0) 04/20/23 19:08 RBC 5.29 10^6/uL (4.1-5.3) 04/20/23 19:08 Hgb 15.1 g/dL (11.7-16.6) 04/20/23 19:08 Hct 44.2 % (42.0-52.0) 04/20/23 19:08 MCV 83.6 fl (80-94) 04/20/23 19:08 MCH 28.5 pg (28.0-34.0) 04/20/23 19:08 MCHC 34.2 g/dL (30.0-36.0) 04/20/23 19:08 RDW 12.5 % (12.1-15.1) 04/20/23 19:08 Plt Count 220 10^3/cmm (130-400) 04/20/23 19:08 MPV 10.3 fL (7.4-10.4) 04/20/23 19:08 Neut % (Auto) 52.1 % 04/20/23 19:08 Lymph % (Auto) 37.9 % 04/20/23 19:08 [place] % (Auto) 6.7 % 04/20/23 19:08 Eos % (Auto) 2.0 % 04/20/23 19:08 Baso % (Auto) 0.9 % 04/20/23 19:08 Neut # (Auto) 4.20 10^3/uL (1.8-7.7) 04/20/23 19:08 Lymph # (Auto) 3.1 10^3/uL (0.8-4.8) 04/20/23 19:08 [place] # (Auto) 0.5 10^3/uL (0.2-0.9) 04/20/23 19:08 Eos # (Auto) 0.2 10^3/uL (0.0-0.8) 04/20/23 19:08 Baso # (Auto) 0.1 10^3/uL (0.0-0.1) 04/20/23 19:08 Nucleated RBC % (auto) 0 % 04/20/23 19:08 Nucleated RBCs # 0.0 /100WBC 04/20/23 19:08 Sodium 139 mmol/L (136-145) 04/20/23 19:08 Potassium 4.2 mmol/L (3.5-5.1) 04/20/23 19:08 Chloride 104 mmol/L (98-107) 04/20/23 19:08 Carbon Dioxide 26 mmol/L (22-29) 04/20/23 19:08 Anion Gap 13.2 (5-19) 04/20/23 19:08 BUN 15 mg/dL (6-20) 04/20/23 19:08 Creatinine 0.9 mg/dL (0.7-1.2) 04/20/23 19:08 GFR Calculation 103.7 mL/min (90-130) 04/20/23 19:08 Glucose 86 mg/dL (65-115) 04/20/23 19:08 Calculated Osmolality 288 mOsm/kg (285-295) 04/20/23 19:08 Calcium 8.9 mg/dL (8.5-10.5) 04/20/23 19:08 Total Bilirubin 0.5 mg/dL (0.15-1.2) 04/20/23 19:08 AST 58 U/L (0-40) H 04/20/23 19:08 ALT 96 U/L (0-41) H 04/20/23 19:08 Alkaline Phosphatase 40 U/L (40-130) 04/20/23 19:08 Troponin T Baseline 6 ng/L (0-15) 04/20/23 19:08 Total Protein 7.1 g/dL (6.6-8.7) 04/20/23 19:08 Albumin 4.6 g/dL (3.5-5.2) 04/20/23 19:08 Globulin 2.5 g/dL (1.3-4.6) 04/20/23 19:08 Lipase 18 U/L (13-60) 04/20/23 19:08 EKG Data EKG 1: I personally reviewed and interpreted this EKG as follows: EKG interpretation date: 04/20/23 EKG interpretation time: 20:00 Interpretation: sinus art hr [address] or t wave abnormalities qrs 113 qc 409 Discharge Plan Discharge Patient Disposition: Home Clinical Impression: Chest pain, Vomiting Condition: Stable Prescriptions: New ondansetron 4 mg tablet,disintegrating 4 mg PO Q6H PRN (Reason: nausea and vomiting) Qty: 14 0RF No Action acetaminophen [Tylenol] 325 mg capsule 975 mg PO QID PRN (Reason: fever or pain) sertraline 100 mg tablet 200 mg PO DAILY 90 Days Qty: 180 0RF trazodone 100 mg tablet 200 mg PO .HS PRN (Reason: insomnia) Qty: 180 0RF hydroxyzine HCl 50 mg tablet 50 mg PO QID PRN (Reason: anxiety) Qty: 120 2RF prazosin 5 mg capsule 5 mg PO .HS Qty: 90 0RF metformin 500 mg tablet 500 mg PO BID Qty: 60 0RF ibuprofen 200 mg Tablet 200 - 400 mg PO Q6H PRN (Reason: HEADACHE/PAIN/FEVER) Hold Instructions: Resume on 09/06/22. ibuprofen 600 mg tablet 600 mg PO Q8H PRN (Reason: pain) Qty: 30 0RF Hold Instructions: Resume on 09/06/22. diclofenac sodium 75 mg tablet,delayed release (DR/EC) 75 mg PO BID Qty: 20 0RF Discharge Orders: Discharge ED (Routine); Ordered 04/20/23 Ordered By: Stan Frank Referrals: Markel Rider MD [Primary Care Provider] - 1-3 days Discharge Diet: Advance as tolerated Discharge Activity: Resume usual activity Patient Instructions: Chest Pain (ED), Acute Nausea and Vomiting (ED) Coding Level of Care Code ED Director Digital Marketing for [facility]
[2023-04-20] MEDS: ondansetron 2 mg/ML SDV 2 mL 4 MG IVP (20:18)
[2023-04-20 20:40] LABS: Troponin(5th) Baseline 6 ng/L (0-15)
[2023-04-20 20:53] VITALS: BP 125/69; PULSE 64; RESP 14; O2SAT 96
== END 2023-04-20 20:54 | disposition home or self-care (01) ==
PROVIDERS: Emergency Provider Emergency Medicine; PCP Family Medicine
DX: R07.89 Other chest pain (principal); R11.10 Vomiting, unspecified; R00.1 Bradycardia, unspecified
CPT/HCPCS: 36415; 71045; 80053; 83690; 84484; 85025; 93005; 96374; 99285; J2405

== ENCOUNTER → 2023-05-02 14:55 | Outpatient (BNVA) | payer MEDICAID, SELFPAY | PROVIDERS: PCP Family Medicine; Visit Provider Family Medicine | DX: R73.09 Other abnormal glucose (principal) | CPT/HCPCS: 83036 ==

== ENCOUNTER 2024-04-28 20:03 | Emergency (ER) | payer MEDICAID, SELFPAY ==
[2024-04-28 20:09] VITALS: BP 157/93; PULSE 74; RESP 14; TEMP 36.8; O2SAT 98
--- NOTE | 2024-04-28 20:16 | ED_ITS ---
HPI - Skin/Abscess/Foreign Bdy General: Chief complaint: Skin/Abscess/Foreign Body Stated complaint: poison taylor Time Seen by Provider: 04/28/24 20:09 Source: patient Mode of arrival: ambulatory Limitations: no limitations History of Present Illness: Patient is a 24-year-old male presents to ED today for evaluation/treatment of poison taylor. Patient states he was exposed to poison taylor approximately 3 to 4 days ago. He states he has had multiple times and states his rash today feels and looks similar. He states in the past he has been treated successfully with steroid shots . complaint: rash Onset (ago): day(s) Tetanus up to date: yes Location: chest, back, LUE and RUE Severity: moderate Quality: burning and pruritic Relieving factors: none Exacerbating factors: none Context: other (plant dermatitis) Associated symptoms: Reports no associated symptoms; Deny fever(s) Treatments prior to arrival: OTC topical medication Review of Systems Const: Denies: fever(s) Musc: Denies: neck pain, back pain, extremity pain or joint pain Skin/Breast: Reports: rash and pruritus Neuro: Denies: headache(s), numbness in extremities, weakness in extremities, sensory changes or dizziness PFSH ED PFSH: Medical History Psychiatric care Strain of knee and leg, left Insomnia Severe depression Anxiety Family History Grandfather Cancer Paternal-colon Grandmother Cancer Paternal-breast Other CAD (coronary artery disease) Diabetes Hyperlipidemia Hypertension Psychiatric illness Stroke Denies family history of Clotting disorder Dementia Chronic kidney disease (CKD) Anesthesia complication Bleeding disorder Lung disease Social History Smoking and tobacco/nicotine status: current every day tobacco/nicotine user cigarettes Packs smoked per day: 0.5 Years cigarettes smoked: 4 Quit status (tobacco/nicotine): considering quitting Second hand smoke exposure: Yes Alcohol intake: current Alcohol intake frequency: holidays/special occasions only Substance/Drug Use: current Substance/Drug use frequency: Special occassions/opportunity only Lives independently: Yes Marital status: Number of children: 0 Current occupational status: employed 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 Special kevin needs: No Agree to transfusion: Yes Physical Exam Const: COMMON NORMALS: no acute distress, patient oriented x3, no limitations, alert and well nourished Neuro: COMMON NORMALS: patient oriented x3 SENSORIUM/ORIENTATION: Yes alert Skin: NARRATIVE SKIN EXAM: erythematous/plant dermatitis appearing rash to bilateral UE and scattered spots to torso RASHES: rashes noted Course Vital Signs: Vital signs: Vital Signs Temperature 98.3 F 04/28/24 20:09 Pulse Rate 74 04/28/24 20:09 Respiratory Rate 14 04/28/24 20:09 Blood Pressure 157/93 04/28/24 20:09 Pulse Oximetry 98 04/28/24 20:09 Oxygen Delivery Me thod Room Air 04/28/24 20:09 MDM - Skin/Abscess/Foreign Bdy Medicial Decision Making Patient was treated with IM long acting and short acting steroids. Medical Records I reviewed the patient's medical records. No radiology studies performed this visit Discharge Plan Discharge Patient Disposition: Home Clinical Impression: Allergic contact dermatitis due to plant Condition: Stable Prescriptions: No Action sertraline 100 mg tablet 200 mg PO DAILY 90 Days Qty: 180 0RF trazodone 100 mg tablet 200 mg PO .HS PRN (Reason: insomnia) Qty: 180 0RF hydroxyzine HCl 50 mg tablet 50 mg PO QID PRN (Reason: anxiety) Qty: 120 2RF prazosin 5 mg capsule 5 mg PO .HS Qty: 90 0RF hydrocortisone 1 % cream 1 applic topical TID PRN (Reason: skin irritation) Qty: 28.35 0RF prednisone 20 mg tablet 60 mg PO DAILY 5 Days Qty: 15 0RF ondansetron 4 mg tablet,disintegrating 4 mg PO Q6H PRN (Reason: nausea and vomiting) Qty: 14 0RF Discharge Orders: Discharge ED (Routine); Ordered 04/28/24 Ordered By: Mara Reyes Referrals: Markel Rider MD [Primary Care Provider] - Patient Instructions: Poison [place] (ED), Poison [place], [place], and [place] - Adult Coding Level of Care Code 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
[2024-04-28] MEDS: hydrocortisone 100 mg/2 mL SDV 75 MG IM (20:41)
[2024-04-28] MEDS: triamcinolone 40 mg/mL SDV IM (20:41)
== END 2024-04-28 20:38 | disposition home or self-care (01) ==
PROVIDERS: Emergency Provider Physician Assistant; PCP Family Medicine
DX: L23.7 Allergic contact dermatitis due to plants, except food (principal); F17.210 Nicotine dependence, cigarettes, uncomplicated
CPT/HCPCS: 96372; 99284; J1720; J3301

== ENCOUNTER 2024-10-03 02:46 | Emergency (ER) | payer OTHER, MEDICAID, SELFPAY ==
[2024-10-03 02:59] VITALS: BP 148/72; PULSE 70; RESP 16; TEMP 36.8; O2SAT 99; BMI 31.8
--- NOTE | 2024-10-03 03:23 | ED_ITS ---
HPI - Wound/Laceration General: Chief Complaint: Wound/Laceration Stated Complaint: Left Hand Middle Finger Injury Time Seen by Provider: 10/03/24 02:50 Source: patient Mode of arrival: ambulatory Limitations: no limitations History of Present Illness: 24-year-old male states that he got a ne w knife accidentally lacerated his left middle finger with that he has a laceration over the palmar aspect of his finger bleeding is controlled he has full range of motion of the finger is minimal pain. Associated symptoms: Denies chills, fever(s), nausea or vomiting Related Data Previous Rx's Medication Instructions Recorded hydroxyzine HCl 50 mg tablet 50 mg PO QID PRN anxiety #120 tabs 04/01/23 prazosin 5 mg capsule 5 mg PO .HS #90 caps 04/01/23 sertraline 100 mg tablet 200 mg (2 x 100 mg) PO DAILY 90 04/01/23 days #180 tabs trazodone 100 mg tablet 200 mg (2 x 100 mg) PO .HS PRN 04/01/23 insomnia #180 tabs ondansetron 4 mg disintegrating 4 mg PO Q6H PRN nausea and 04/20/23 tablet vomiting #14 tabs prednisone 20 mg tablet 60 mg (3 x 20 mg) PO DAILY 5 days 04/28/23 #15 tabs hydrocortisone 1 % topical cream 1 applic topical TID PRN skin 05/02/23 irritation #28.35 grams Allergies Allergy/AdvReac Type Severity Reaction Status Date / Time No Known Allergies Allergy Verified 04/28/24 20:12 Review of Systems Const: Denies: fever(s), chills, body aches or change in appetite ENMT: Denies: throat pain or dental pain Card: Denies: chest pain Resp: Denies: dyspnea GI: Denies: abdominal pain, nausea, vomiting or diarrhea Musc: Denies: neck pain or back pain Skin/Breast: Denies: rash Neuro: Denies: headache(s) PFSH ED PFSH: Medical History Strain of knee and leg, left Insomnia Severe depression Anxiety Family History Grandfather Cancer Paternal-colon Grandmother Cancer Paternal-breast Other CAD (coronary artery disease) Diabetes Hyperlipidemia Hypertension Psychiatric illness Stroke Denies family history of Clotting disorder Dementia Chronic kidney disease (CKD) Anesthesia complication Bleeding disorder Lung disease Social History Smoking and tobacco/nicotine status: current every day tobacco/nicotine user cigarettes Packs smoked per day: 0.5 Years cigarettes smoked: 4 Quit status (tobacco/nicotine): considering quitting Second hand smoke exposure: Yes Alcohol intake: current Alcohol intake frequency: holidays/special occasions only Substance/Drug Use: current Substance/Drug use frequency: Special occassions/opportunity only Lives independently: Yes Marital status: Number of children: 0 Current occupational status: employed 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 Special kevin needs: No Agree to transfusion: Yes Physical Exam Const: COMMON NORMALS: no acute distress, patient oriented x3 and healthy appearing HENMT: COMMON NORMALS: normocephalic and atraumatic HEAD & SCALP: normocephalic and atraumatic Neck/C-Spine: COMMON NORMALS: full ROM and supple Chest: COMMONS NORMALS: normal inspection of the chest Resp: COMMON NORMALS: normal respiratory effort Extremity: COMMON NORMALS: full ROM NARRATIVE EXTREMITY EXAM: Laceration to left middle finger on the palmar aspect he is full strength of finger no signs of tendon injury Neuro: COMMON NORMALS: patient oriented x3, moves all extremities and no focal motor deficits Psych: COMMON NORMALS: mental status grossly normal, Normal thought process present and cooperative THOUGHT PROCESS: Normal thought process present Skin: COMMON NORMALS: no rashes or lesions noted GENERAL SKIN EXAM: no rashes or lesions noted Procedures Laceration Laceration 1: Site: hand Side (If applicable): left Size (cm): 3 Description: linear Depth: simple, single layer Local Anesthetic: lidocaine 1% Amount of anesthesia used (mL): 6 Pre-repair: wound explored, irrigated extensively and deep structures intact Skin layer closed with: nylon Size (cm): 5-0 Number of sutures: 5 Course Vital Signs: Vital signs: Vital Signs Temperature 98.3 F 10/03/24 02:59 Pulse Rate 70 10/03/24 02:59 Respiratory Rate 16 10/03/24 02:59 Blood Pressure 148/72 10/03/24 02:59 Pulse Oximetry 99 10/03/24 02:59 Oxygen Delivery Me thod Room Air 10/03/24 02:59 MDM - Wound/Laceration Medical Decision Making Patient presents here with laceration to left middle finger no signs of tendon involvement did repair the laceration he is to return in 7 days for suture removal. Medical Records I reviewed the patient's medical records. No radiology studies performed this visit Discharge Plan Discharge Patient Disposition: Home Clinical Impression: Laceration Condition: Stable Prescriptions: No Action sertraline 100 mg tablet 200 mg PO DAILY 90 Days Qty: 180 0RF trazodone 100 mg tablet 200 mg PO .HS PRN (Reason: insomnia) Qty: 180 0RF hydroxyzine HCl 50 mg tablet 50 mg PO QID PRN (Reason: anxiety) Qty: 120 2RF prazosin 5 mg capsule 5 mg PO .HS Qty: 90 0RF hydrocortisone 1 % cream 1 applic topical TID PRN (Reason: skin irritation) Qty: 28.35 0RF prednisone 20 mg tablet 60 mg PO DAILY 5 Days Qty: 15 0RF ondansetron 4 mg tablet,disintegrating 4 mg PO Q6H PRN (Reason: nausea and vomiting) Qty: 14 0RF Discharge Orders: Discharge ED (Routine); Ordered 10/03/24 Ordered By: Stan Frank Referrals: Markel Rider MD [Primary Care Provider] - 4-7 days Discharge Diet: Advance as tolerated Discharge Activity: Resume usual activity Patient Instructions: Care For Your Stitches (ED), Laceration (ED) Activity Restrictions/Additional Instructions: suture removal in 7 days Coding Level of Care Code ED Clubhouse Attendant for Maria R Garcia
[2024-10-03 04:10] VITALS: BP 144/78; PULSE 78; RESP 18; O2SAT 98
== END 2024-10-03 04:12 | disposition home or self-care (01) ==
PROVIDERS: Emergency Provider Emergency Medicine; PCP Family Medicine
DX: S61.213A Laceration without foreign body of left middle finger without damage to nail, initial encounter (principal); W26.0XXA Contact with knife, initial encounter; F17.210 Nicotine dependence, cigarettes, uncomplicated
CPT/HCPCS: 12002; 99283

== ENCOUNTER 2024-10-10 15:39 | Emergency (ER) | payer MEDICAID, SELFPAY ==
[2024-10-10 15:50] VITALS: BP 148/82; PULSE 76; RESP 17; TEMP 36.6; O2SAT 97; BMI 32.5
--- NOTE | 2024-10-10 16:16 | W.ED.WOUNDLC ---
Documented by User: [email or web address] Mayo 10/10/24 16:41 HPI - Wound/Laceration General: Chief Complaint: Wound/Laceration Stated Complaint: stitches nees to be remove on hand Time Seen by Provider: 10/10/24 15:42 Source: patient Mode of arrival: ambulatory Limitations: no limitations History of Present Illness: Patient is a 24-year-old male who presents the emergency department for suture removal. He was seen here on 10/03 due to a laceration to his left middle finger to the finger pad, had wound repaired then. No complications since this procedure, states he is just here to have the sutures removed. No symptoms to report at this time. Extremity Location: Left: hand (Middle finger) Associated symptoms: Denies chills, fever(s), nausea or vomiting Related Data Previous Rx's Medication Instructions Recorded hydroxyzine HCl 50 mg tablet 50 mg PO QID PRN anxiety #120 tabs 04/01/23 prazosin 5 mg capsule 5 mg PO .HS #90 caps 04/01/23 sertraline 100 mg tablet 200 mg (2 x 100 mg) PO DAILY 90 04/01/23 days #180 tabs trazodone 100 mg tablet 200 mg (2 x 100 mg) PO .HS PRN 04/01/23 insomnia #180 tabs ondansetron 4 mg disintegrating 4 mg PO Q6H PRN nausea and 04/20/23 tablet vomiting #14 tabs prednisone 20 mg tablet 60 mg (3 x 20 mg) PO DAILY 5 days 04/28/23 #15 tabs hydrocortisone 1 % topical cream 1 applic topical TID PRN skin 05/02/23 irritation #28.35 grams Allergies Allergy/AdvReac Type Severity Reaction Status Date / Time No Known Allergies Allergy Verified 04/28/24 20:12 Review of Systems General: Reports: 10 or more systems reviewed and unremarkable except in HPI and below Const: Reports: other (Present for suture removal); Denies: fever(s) or chills Card: Denies: chest pain Resp: Denies: dyspnea GI: Denies: abdominal pain, nausea, vomiting or diarrhea Musc: Denies: extremity pain or joint pain Skin/Breast: Denies: rash, skin pain, skin tenderness or new lesions Neuro: Denies: headache(s) PFSH ED PFSH: Medical History Strain of knee and leg, left Insomnia Severe depression Anxiety Family History Grandfather Cancer Paternal-colon Grandmother Cancer Paternal-breast Other CAD (coronary artery disease) Diabetes Hyperlipidemia Hypertension Psychiatric illness Stroke Denies family history of Clotting disorder Dementia Chronic kidney disease (CKD) Anesthesia complication Bleeding disorder Lung disease Social History Smoking and tobacco/nicotine status: current every day tobacco/nicotine user cigarettes Packs smoked per day: 0.5 Years cigarettes smoked: 4 Quit status (tobacco/nicotine): considering quitting Second hand smoke exposure: Yes Alcohol intake: current Alcohol intake frequency: holidays/special occasions only Substance/Drug Use: current Substance/Drug use frequency: Special occassions/opportunity only Lives independently: Yes Marital status: Number of children: 0 Current occupational status: employed Current occupation: [employer] Special kevin needs: No Agree to transfusion: Yes Physical Exam Const: COMMON NORMALS: no acute distress, average body habitus, patient oriented x3, no limitations, healthy appearing, alert and well nourished HENMT: COMMON NORMALS: normocephalic and atraumatic HEAD & SCALP: normocephalic and atraumatic Neck/C-Spine: COMMON NORMALS: full ROM, no lymphadenopathy, supple and no meningeal signs Extremity: COMMON NORMALS: full ROM and capillary refill normal Neuro: COMMON NORMALS: patient oriented x3 SENSORIUM/ORIENTATION: Yes alert MENINGEAL SIGNS: Yes no meningeal signs Skin: COMMON NORMALS: turgor normal NARRATIVE SKIN EXAM: Well-healed laceration to finger pad of left middle finger, 5 sutures present with no apparent complication. GENERAL SKIN EXAM: turgor normal Course Vital Signs: Vital signs: Vital Signs Temperature 97.8 F 10/10/24 15:50 Pulse Rate 84 10/10/24 16:19 Respiratory Rate 17 10/10/24 15:50 Blood Pressure 133/79 10/10/24 16:19 Pulse Oximetry 97 10/10/24 16:19 Oxygen Delivery Me thod Room Air 10/10/24 15:50 MDM - Wound/Laceration Medical Decision Making Sutures were removed without complication, he was informed to follow-up with primary care as needed. No radiology studies performed this visit Discharge Plan Discharge Patient Disposition: Home Clinical Impression: Encounter for removal of sutures Condition: Stable Prescriptions: No Action sertraline 100 mg tablet 200 mg PO DAILY 90 Days Qty: 180 0RF trazodone 100 mg tablet 200 mg PO .HS PRN (Reason: insomnia) Qty: 180 0RF hydroxyzine HCl 50 mg tablet 50 mg PO QID PRN (Reason: anxiety) Qty: 120 2RF prazosin 5 mg capsule 5 mg PO .HS Qty: 90 0RF hydrocortisone 1 % cream 1 applic topical TID PRN (Reason: skin irritation) Qty: 28.35 0RF prednisone 20 mg tablet 60 mg PO DAILY 5 Days Qty: 15 0RF ondansetron 4 mg tablet,disintegrating 4 mg PO Q6H PRN (Reason: nausea and vomiting) Qty: 14 0RF Discharge Orders: Discharge ED (Routine); Ordered 10/10/24 Ordered By: Mak Hernandez Referrals: Markel Rider MD [Primary Care Provider] - Patient Instructions: Stitches Removal (ED) Activity Restrictions/Additional Instructions: Follow-up with primary care as needed. Coding Level of Care Code ED Missile Facilities Repairer for Chg Fwd Documented by User: David Peguero DO 10/11/24 14:13 HPI - Wound/Laceration General: Chief Complaint: Wound/Laceration Stated Complaint: stitches nees to be remove on hand Time Seen by Provider: 10/10/24 15:42 Related Data Previous Rx's Medication Instructions Recorded hydroxyzine HCl 50 mg tablet 50 mg PO QID PRN anxiety #120 tabs 04/01/23 prazosin 5 mg capsule 5 mg PO .HS #90 caps 04/01/23 sertraline 100 mg tablet 200 mg (2 x 100 mg) PO DAILY 90 04/01/23 days #180 tabs trazodone 100 mg tablet 200 mg (2 x 100 mg) PO .HS PRN 05/23/23 insomnia #180 tabs ondansetron 4 mg disintegrating 4 mg PO Q6H PRN nausea and 04/20/23 tablet vomiting #14 tabs prednisone 20 mg tablet 60 mg (3 x 20 mg) PO DAILY 5 days 04/28/23 #15 tabs hydrocortisone 1 % topical cream 1 applic topical TID PRN skin 05/02/23 irritation #28.35 grams Allergies Allergy/AdvReac Type Severity Reaction Status Date / Time No Known Allergies Allergy Verified 04/28/24 20:12 PFSH ED PFSH: Medical History Strain of knee and leg, left Insomnia Severe depression Anxiety Family History Grandfather Cancer Paternal-colon Grandmother Cancer Paternal-breast Other CAD (coronary artery disease) Diabetes Hyperlipidemia Hypertension Psychiatric illness Stroke Denies family history of Clotting disorder Dementia Chronic kidney disease (CKD) Anesthesia complication Bleeding disorder Lung disease Social History Smoking and tobacco/nicotine status: current every day tobacco/nicotine user cigarettes Packs smoked per day: 0.5 Years cigarettes smoked: 4 Quit status (tobacco/nicotine): considering quitting Second hand smoke exposure: Yes Alcohol intake: current Alcohol intake frequency: holidays/special occasions only Substance/Drug Use: current Substance/Drug use frequency: Special occassions/opportunity only Lives independently: Yes Marital status: Number of children: 0 Current occupational status: employed Current occupation: [employer] Special kevin needs: No Agree to transfusion: Yes Course Vital Signs: Vital signs: Vital Signs Temperature 97.8 F 10/10/24 15:50 Pulse Rate 84 10/10/24 16:19 Respiratory Rate 17 10/10/24 15:50 Blood Pressure 133/79 10/10/24 16:19 Pulse Oximetry 97 10/10/24 16:19 Oxygen Delivery Me thod Room Air 10/10/24 15:50 MDM - Wound/Laceration Medical Decision Making Sutures were removed without complication, he was informed to follow-up with primary care as needed. Chart reviewed Discharge Plan Discharge Patient Disposition: Home Clinical Impression: Encounter for removal of sutures Condition: Stable Prescriptions: No Action sertraline 100 mg tablet 200 mg PO DAILY 90 Days Qty: 180 0RF trazodone 100 mg tablet 200 mg PO .HS PRN (Reason: insomnia) Qty: 180 0RF hydroxyzine HCl 50 mg tablet 50 mg PO QID PRN (Reason: anxiety) Qty: 120 2RF prazosin 5 mg capsule 5 mg PO .HS Qty: 90 0RF hydrocortisone 1 % cream 1 applic topical TID PRN (Reason: skin irritation) Qty: 28.35 0RF prednisone 20 mg tablet 60 mg PO DAILY 5 Days Qty: 15 0RF ondansetron 4 mg tablet,disintegrating 4 mg PO Q6H PRN (Reason: nausea and vomiting) Qty: 14 0RF Discharge Orders: Discharge ED (Routine); Ordered 10/10/24 Ordered By: Mak Hernandez Referrals: Markel Rider MD [Primary Care Provider] - Patient Instructions: Stitches Removal (ED) Activity Restrictions/Additional Instructions: Follow-up with primary care as needed. Coding Level of Care Code ED Missile Facilities Repairer for Maria R Garcia
[2024-10-10 16:19] VITALS: BP 133/79; PULSE 84; O2SAT 97
== END 2024-10-10 16:21 | disposition home or self-care (01) ==
PROVIDERS: Emergency Provider Physician Assistant; PCP Family Medicine
DX: Z48.02 Encounter for removal of sutures (principal); F17.210 Nicotine dependence, cigarettes, uncomplicated
CPT/HCPCS: 99281

== ENCOUNTER → 2025-03-11 08:27 | Outpatient (BNVA) | payer OTHER, SELFPAY | PROVIDERS: PCP Family Medicine | DX: S61.238A Puncture wound without foreign body of other finger without damage to nail, initial encounter (principal); W46.0XXA Contact with hypodermic needle, initial encounter | CPT/HCPCS: 86706; 86803; 87340; 87806 ==

== ENCOUNTER 2025-05-21 16:20 | Emergency (ER) | payer SELFPAY ==
--- OUTSIDE RECORDS SUMMARY | 2024-10-16 04:00 | XMS_ITS ---
Author Organization [facility] Address [address] [place] [address] Care Team Providers Care Greenhouse Manager Name Role Phone Migration, Provider Unavailable Unavailable REASON FOR VISIT EMR-Simone Encounters Encounter Location Date Provider Diagnosis [facility] [address] [place] [address] 10/16/2024 Provider Migration Plan Of Treatment No Information Progress Notes * MARIA INES LOUISDOB:2000 (25 yo M)Acc No.[id number]:10/16/2024 Patient: MARIA INES VILLANUEVA :2000 A ge:24 Y S ex:Male Phone: Address:[address] [place] [address], [place] [address] Subjective: * Chief Complaints: * E MR-Simone * * Date:
--- OUTSIDE RECORDS SUMMARY | 2024-10-17 04:00 | XMS_ITS ---
Author Organization [facility] Address [address] [place] [address] Care Team Providers Care Math And Sciences Department Chair Name Role Phone Migration, Provider Unavailable Unavailable REASON FOR VISIT EMR-Simone Encounters Encounter Location Date Provider Diagnosis [facility] [address] [place] [address] 10/17/2024 Provider Migration Plan Of Treatment No Information Progress Notes * MARIA INES LOUISDOB:2000 (25 yo M)Acc No.[id number]:10/17/2024 Patient: MARIA INES VILLANUEVA :2000 A ge:24 Y S ex:Male Phone: Address:[address] [place] [address], [place] [address] Subjective: * Chief Complaints: * E MR-Simone * * Date:
[2025-05-21 16:27] VITALS: BP 133/81; PULSE 66; RESP 15; TEMP 36.6; O2SAT 98; BMI 33.2
--- OUTSIDE RECORDS SUMMARY | 2025-05-21 16:31 | XMS_ITS | Patient Health Record ---
Author Organization [facility] Address [address] [place] [address] Care Team Providers Care Customer Success Specialist Name Role Phone Migration, Provider Unavailable Unavailable Reason For Referral No Information Immunizations Vaccine Route Administration Date Status Comme nts Hep B, adult (2 dose schedule) IM Intramuscular 10/21/2023 Administered Encounters Encounter Location Date Provider Diagnosis [facility] [address] [place] [address] 10/16/2024 Provider Migration [facility] [address] [place] [address] 10/17/2024 Provider Migration Plan Of Treatment No Information
--- NOTE | 2025-05-21 16:40 | XRR_ITS ---
PROCEDURE INFORMATION: Exam: XR Chest Exam date and time: 05/21/2025 4:48 PM Age: 25 years old Clinical indication: Shortness of breath; Additional info: SOB TECHNIQUE: Imaging protocol: Radiologic exam of the chest. Views: 1 view. COMPARISON: CR XR chest 1V portable [id number] 04/20/2023 6:55 PM FINDINGS: Lungs: No pulmonary consolidation. Pleural spaces: No pleural effusion or pneumothorax. Heart/Mediastinum: Heart size is within normal limits. Bones/joints: No acute osseous abnormalities are seen. XR/XR chest 1V portable [id number] IMPRESSION: No acute cardiopulmonary disease.
--- NOTE | 2025-05-21 16:41 | ECG_ITS ---
[place] [facility] Date: 2025-05-21 Pat Name: Lon Amaro Department: Room: Gender: Male Urologist Md: : 2000 Requested By: Oly Rutherford Order Number: [id number] Cynthia MD: Jose Alonso M.D. Measurements Intervals [place] Rate: 69 P: 66 CO: 170 QRS: 66 QRSD: 111 T: 65 QT: 369 QTc: 396 Interpretive Statements SINUS RHYTHM MODERATE INTRAVENTRICULAR CONDUCTION DELAY [110+ ms QRS DURATION] INTERPRETATION BASED ON A DEFAULT AGE OF 40 YEARS Compared to ECG 04/20/2023 20:00:51 Sinus bradycardia no longer present Sinus arrhythmia no longer present Electronically Signed On 05-24-2025 10:10:34 CDT by Jose Alonso M.D. [email or web address]
--- NOTE | 2025-05-21 16:47 | W.ED.CHESTPA ---
HPI - Chest Pain General: Chief Complaint: Chest Pain Stated Complaint: cp pressure Time Seen by Provider: 05/21/25 16:39 History of Present Illness: 25-year-old who presents emergency room with 2 days of chest pain. Central chest pain that radiates some into the right. Hurts some with breathing. Sharp pains and pressure. Has been going on for couple of days now. He has had some mild cough. No fevers. No shortness of breath. Related Data Previous Rx's ?Medication ?Instructions ?Recorded hydroxyzine HCl 50 mg tablet 50 mg PO QID PRN anxiety #120 tabs 04/01/23 sertraline 100 mg tablet 200 mg (2 x 100 mg) PO DAILY 90 04/01/23 days #180 tabs trazodone 100 mg tablet 200 mg (2 x 100 mg) PO .HS PRN 04/01/23 insomnia #180 tabs ondansetron 4 mg disintegrating 4 mg PO Q6H PRN nausea and 04/20/23 tablet vomiting #14 tabs hydrocortisone 1 % topical cream 1 applic topical TID PRN skin 05/02/23 irritation #28.35 grams azithromycin 250 mg tablet See Rx Instructions PO .COMPLEX #6 05/21/25 (Zithromax Z-Mehdi) tabs dexamethasone 6 mg tablet 6 mg PO DAILY 5 days #5 tabs 05/21/25 Allergies Allergy/AdvReac Type Severity Reaction Status Date / Time No Known Allergies Allergy Verified 03/11/25 07:50 Review of Systems Narrative: Constitutional symptoms: Negative except as documented in HPI. Skin symptoms: Negative except as documented in HPI. Eye symptoms: Negative except as documented in HPI. ENMT symptoms: Negative except as documented in HPI. Respiratory symptoms: Negative except as documented in HPI. Cardiovascular symptoms: Negative except as documented in HPI. Gastrointestinal symptoms: Negative except as documented in HPI. Genitourinary symptoms: Negative except as documented in HPI. Musculoskeletal symptoms: Negative except as documented in HPI. Neurologic symptoms: Negative except as documented in HPI. Psychiatric symptoms: Negative except as documented in HPI. Endocrine symptoms: Negative except as documented in HPI. [facility] ED PFSH: Medical History (Updated 05/21/25 @ 17:28 by Vianey Washington MD) Contact with needle (sewing), initial encounter Needle stick injury of finger of left hand Strain of knee and leg, left Insomnia Severe depression Anxiety Family History Grandfather Cancer Paternal-colon Grandmother Cancer Paternal-breast Other CAD (coronary artery disease) Diabetes Hyperlipidemia Hypertension Psychiatric illness Stroke Denies family history of Clotting disorder Dementia Chronic kidney disease (CKD) Anesthesia complication Bleeding disorder Lung disease Social History Smoking and tobacco/nicotine status: current every day tobacco/nicotine user cigarettes Packs smoked per day: 0.5 Years cigarettes smoked: 4 Quit status (tobacco/nicotine): considering quitting Second hand smoke exposure: Yes Alcohol intake: current Alcohol intake frequency: holidays/special occasions only Substance/Drug Use: current Substance/Drug use frequency: Special occassions/opportunity only Lives independently: Yes Marital status: Number of children: 0 Current occupational status: employed 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 Skin: Warm, dry. Head: Normocephalic, atraumatic. Neck: Supple, trachea midline. Eye: Extraocular movements are intact. Ears, nose, mouth and throat: mucosa moist. Cardiovascular: Regular, Normal peripheral perfusion. Respiratory: Lungs are clear to auscultation, respirations are non-labored, breath sounds are equal, Symmetrical chest wall expansion. Gastrointestinal: Soft, Nontender, Non distended Musculoskeletal: Normal ROM, no deformity. Neurological: Alert and oriented, No focal neurological deficit observed. Psychiatric: Cooperative, appropriate mood & affect. Course Vital Signs: Vital signs: Vital Signs Temperature 97.8 F 05/21/25 16:27 Pulse Rate 64 05/21/25 17:00 Respiratory Rate 18 05/21/25 17:00 Blood Pressure 133/70 05/21/25 17:00 Pulse Oximetry 96 05/21/25 17:00 Oxygen Delivery Me thod Room Air 05/21/25 17:00 MDM - Chest Pain Medical Decision Making Differential diagnosis for patient with chest pain includes but is not limited to and based on the above HPI, review of systems and physical exam: Pneumonia. unstable angina. angina. Acute coronary syndrome / [place]. Pulmonary embolism. Costochondritis / musculoskeletal. Pleurisy. Pericarditis. Esophageal spasm. Pancreatis. Cholecystitis. Orders placed to evaluate differential diagnosis based on the above differential, HPI and physical exam Chest x-ray: No acute process. No infiltrate. No pneumothorax. Films were interpreted by myself the emergency room provider and pending final radiology review. EKG: Time 1626. Rate 69. Normal sinus rhythm, No ST-T changes, no ectopy, normal HI & QRS intervals, This was reviewed and interpreted by the ER physician at 1630 Lab Review: Laboratory results were reviewed and interpreted by myself the emergency room physician. No leukocytosis. No anemia. No renal failure. Troponin negative. I reviewed the patient's medical record. Reexamination: Patient remained stable. No increased work of breathing. No altered mental status. No focal motor deficits. Assessment and plan: Noncardiac chest pain - Discharged home - Discussed plan with patient. Answered any questions. - Evaluation and treatment of this problem were appropriate in the emergency setting. Lab Data 05/21/25 16:51 05/21/25 16:51 Laboratory Results WBC 8.31 10^3/uL (3.29-11.43) 05/21/25 16:51 RBC 5.62 10^6/uL (3.85-5.65) 05/21/25 16:51 Hgb 15.90 g/dL (11.27-16.99) 05/21/25 16:51 Hct 46.3 % (37-53) 05/21/25 16:51 MCV 82.4 fl (82-101) 05/21/25 16:51 MCH 28.3 pg (27-33) 05/21/25 16:51 MCHC 34.3 g/dL (30-55) 05/21/25 16:51 RDW 12.1 % (12.1-15.1) 05/21/25 16:51 Plt Count 228 10^3/cmm (157-399) 05/21/25 16:51 MPV 10.8 fL (7.4-10.4) H 05/21/25 16:51 Neut % (Auto) 56.9 % 05/21/25 16:51 Lymph % (Auto) 32.6 % 05/21/25 16:51 Harmon % (Auto) 6.3 % 05/21/25 16:51 Eos % (Auto) 2.9 % 05/21/25 16:51 Baso % (Auto) 1.1 % 05/21/25 16:51 Neut # (Auto) 4.73 10^3/uL (1.8-7.7) 05/21/25 16:51 Lymph # (Auto) 2.7 10^3/uL (0.8-4.8) 05/21/25 16:51 Harmon # (Auto) 0.5 10^3/uL (0.2-0.9) 05/21/25 16:51 Eos # (Auto) 0.2 10^3/uL (0.0-0.8) 05/21/25 16:51 Baso # (Auto) 0.1 10^3/uL (0.0-0.1) 05/21/25 16:51 Nucleated RBC % (auto) 0 % 05/21/25 16:51 Nucleated RBCs # 0.0 /100WBC 05/21/25 16:51 Sodium 140 mmol/L (136-145) 05/21/25 16:51 Potassium 4.1 mmol/L (3.5-5.1) 05/21/25 16:51 Chloride 105 mmol/L (98-107) 05/21/25 16:51 Carbon Dioxide 22 mmol/L (22-29) 05/21/25 16:51 Anion Gap 17.1 (5-19) 05/21/25 16:51 BUN 8 mg/dL (6-20) 05/21/25 16:51 Creatinine 0.7 mg/dL (0.7-1.2) 05/21/25 16:51 GFR Calculation 136.3 mL/min (90-130) H 05/21/25 16:51 Glucose 90 mg/dL (65-115) 05/21/25 16:51 Calculated Osmolality 288 mOsm/kg (285-295) 05/21/25 16:51 Calcium 8.9 mg/dL (8.5-10.5) 05/21/25 16:51 Total Bilirubin 0.3 mg/dL (0.15-1.2) 05/21/25 16:51 AST 52 U/L (0-40) H 05/21/25 16:51 ALT 105 U/L (0-41) H 05/21/25 16:51 Alkaline Phosphatase 48 U/L (40-130) 05/21/25 16:51 Troponin T Baseline < 6 ng/L (0-15) 05/21/25 16:51 Total Protein 6.9 g/dL (6.6-8.7) 05/21/25 16:51 Albumin 4.5 g/dL (3.5-5.2) 05/21/25 16:51 Globulin 2.4 g/dL (1.3-4.6) 05/21/25 16:51 XR interpretation done by ED provider, pending radiology final review Discharge Plan Discharge Patient Disposition: Home Clinical Impression: Non-cardiac chest pain Condition: Stable Prescriptions: New azithromycin [Zithromax Z-Mehdi] 250 mg tablet See Rx Instructions .ROUTE .COMPLEX Qty: 6 0RF Rx Instructions: For 250 mg dose pack: take 500 mg today (day 1), then 250 mg for 4 days (days 2-5) dexamethasone 6 mg tablet 6 mg PO DAILY 5 Days Qty: 5 0RF No Action sertraline 100 mg tablet 200 mg PO DAILY 90 Days Qty: 180 0RF trazodone 100 mg tablet 200 mg PO .HS PRN (Reason: insomnia) Qty: 180 0RF hydroxyzine HCl 50 mg tablet 50 mg PO QID PRN (Reason: anxiety) Qty: 120 2RF hydrocortisone 1 % cream 1 applic topical TID PRN (Reason: skin irritation) Qty: 28.35 0RF ondansetron 4 mg tablet,disintegrating 4 mg PO Q6H PRN (Reason: nausea and vomiting) Qty: 14 0RF Discharge Orders: Discharge ED (Routine); Ordered 05/21/25 Ordered By: Vianey Washington Referrals: Markel Rider MD [Primary Care Provider, Family Practice] Discharge Diet: Usual diet Discharge Activity: Increase activity as tolerated Patient Instructions: Noncardiac Chest Pain (ED), Opioid Safety, Pain Management, Patient Portal & [place] Instructions Activity Restrictions/Additional Instructions: Thank you for choosing [facility] for your healthcare needs today. You have been screened and evaluated and felt safe for discharge. Health conditions do change or evolve sometimes and as such it is important that you follow up with your Primary Doctor to be re checked, 3-5 days is a general good time frame for follow up. You are always welcome to return to the ED for re assessment if your symptoms are worsening or you have new concerns Print Language: Welsh Coding Level of Care Code ED Director Of Marketing And Promotions for Maria R Garcia
[2025-05-21 16:56] LABS: Hematocrit 46.3 % (37-53); Hemoglobin 15.90 g/dL (11.27-16.99); Mean Corpuscular HGB Conc 34.3 g/dL (30-55); Mean Corpuscular Hemoglobin 28.3 pg (27-33); Mean Corpuscular Volume 82.4 fl (82-101); Nucleated Red Blood Cells % 0 %; Platelet Count 228 10^3/cmm (157-399); Red Blood Count 5.62 10^6/uL (3.85-5.65); White Blood Count 8.31 10^3/uL (3.29-11.43)
[2025-05-21 17:00] VITALS: BP 133/70; PULSE 64; RESP 18; O2SAT 96
[2025-05-21 17:14] LABS: Alanine Aminotransferase 105 U/L (0-41); Albumin Level 4.5 g/dL (3.5-5.2); Alkaline Phosphatase 48 U/L (40-130); Anion Gap 17.1 (5-19); Aspartate Amino Transferase 52 U/L (0-40); Blood Urea Nitrogen 8 mg/dL (6-20); Calcium 8.9 mg/dL (8.5-10.5); Carbon Dioxide 22 mmol/L (22-29); Chloride 105 mmol/L (98-107); Creatinine Clr Calc Pharmacy 205.8605; Globulin 2.4 g/dL (1.3-4.6); Glucose 90 mg/dL (65-115); Osmolality Calculated 288 mOsm/kg (285-295); Potassium 4.1 mmol/L (3.5-5.1); Sodium 140 mmol/L (136-145); Total Protein 6.9 g/dL (6.6-8.7); Troponin(5th) Baseline < 6 ng/L (0-15)
[2025-05-21 17:46] VITALS: BP 136/70; PULSE 66; O2SAT 94
== END 2025-05-21 17:49 | disposition home or self-care (01) ==
PROVIDERS: Physician Assistant; Emergency Provider Emergency Medicine; PCP Family Medicine
DX: R07.89 Other chest pain (principal); F17.210 Nicotine dependence, cigarettes, uncomplicated
CPT/HCPCS: 36415; 71045; 80053; 84484; 85025; 93005; 99285